=== PATIENT | female | born 1965 | race Caucasian/White ===

== ENCOUNTER 2022-05-11 06:04 | Inpatient (IN) ==
[2022-05-11] MEDS ORDERED: CeFAZolin Syr 2,000MG/20 ML 2,000 MG/20 ML SYRINGE IVPB ONE (06:28)
[2022-05-11] MEDS ORDERED: Ringers Solution, Lactated 1,000 ML IVC SCH (06:30)
[2022-05-11] MEDS ORDERED: Lidocaine -MPF 2% 5 ML VIAL ONE (06:58)
[2022-05-11] MEDS ORDERED: Ondansetron 4 MG/2 ML VIAL ONE (06:58)
[2022-05-11] MEDS ORDERED: *HR* Rocuronium Bromide 50 MG/5 ML VIAL ONE ×2 (06:58→08:18)
[2022-05-11] MEDS ORDERED: *HR* Succinylcholine 200 MG/10 ML VIAL IVP ONE (06:58)
[2022-05-11] MEDS ORDERED: *HR* FentaNYL (PF) 100 MCG/2 ML VIAL ONE ×2 (06:59→08:12)
[2022-05-11] MEDS ORDERED: *HR* Propofol 200 MG/20 ML VIAL IVP ONE (06:59)
[2022-05-11] MEDS ORDERED: Promethazine 6.25 MG in Water for inj. (sterile) 20 ML IVPB PRN (07:08)
[2022-05-11] MEDS ORDERED: Ondansetron 4 MG/2 ML VIAL IVP PRN ×2 (07:08→11:13)
[2022-05-11] MEDS ORDERED: *HR* HYDROmorphone PF 0.5 MG/0.5 ML SYRINGE IVP PRN (07:08)
[2022-05-11] MEDS ORDERED: *HR* OxyCODONE Immed Rel 5 MG TABLET PO PRN (07:08)
[2022-05-11] MEDS ORDERED: Lidocaine HCL 4 ML Topical Solution (Laryng-O-Jet Kit Sterile Pak) TP ONE (07:31)
[2022-05-11] MEDS ORDERED: Sugammadex Sodium 200 MG/2 ML VIAL IV ONE (08:33)
[2022-05-11] MEDS ORDERED: Ketamine HCL *QUVA* 50mg (1mL) SYRINGE ONE (08:56)
[2022-05-11] MEDS ORDERED: Ketorolac 30 MG/ML VIAL ONE (09:32)
[2022-05-11] MEDS ORDERED: Naloxone 0.4 MG/ML INJ IVP PRN (11:13)
[2022-05-11] MEDS: Gabapentin 300 MG CAPSULE PO SCH ×2 (14:34→22:33)
[2022-05-11] MEDS: *HR* HYDROcodone/Acet 5/325 mg TABLET PO PRN ×2 (14:34→22:33)
[2022-05-11] MEDS: *HR* Heparin 5,000 UNIT/ML VIAL SQ SCH ×2 (14:35→22:32)
[2022-05-11] MEDS ORDERED: Gabapentin 300 MG CAPSULE PO SCH (15:00)
[2022-05-11] MEDS: Ipratropium/Albuterol Neb 3 ML IH SCH ×4 (15:38→23:39)
[2022-05-11] MEDS: 0.9 % Sodium Chloride 1,000 ML IVC SCH (19:41)
[2022-05-11] MEDS: Ketorolac 30 MG/ML VIAL IVP SCH (19:42)
[2022-05-11] MEDS: Famotidine 20 MG TABLET PO SCH (22:33)
[2022-05-11] MEDS: Sennosides/Docusate Sodium TABLET PO SCH (22:34)
[2022-05-12] MEDS: Ketorolac 30 MG/ML VIAL IVP SCH ×4 (00:50→17:38)
[2022-05-12 03:52] LABS: Hematocrit 33.7 % (35.3-44.9); Hemoglobin 10.5 g/dL (11.5-15.4); Mean Corpuscular HGB Conc 31.2 g/dL (31.6-35.5); Mean Corpuscular Hemoglobin 29.5 pg (28.0-33.3); Mean Corpuscular Volume 94.7 fL (83.0-100.0); Mean Platelet Volume 10.3 fL (9.4-12.4); Platelet Count 217 K/mcL (140-400); Red Blood Count 3.56 M/mcL (3.82-4.97); Red Cell Distribution Width 13.7 % (11.5-14.5); White Blood Count 8.6 K/mcL (4.3-11.1)
[2022-05-12 04:08] LABS: % Iron Saturation 8 % (15-50); BUN/Creatinine Ratio 20 (6-26); Blood Urea Nitrogen 11 mg/dL (6-20); Calcium 8.6 mg/dL (8.6-10.3); Carbon Dioxide 24 mEq/L (23-29); Chloride 111 mEq/L (98-107); Glucose 112 mg/dL (70-105); Iron 22 mcg/dL (50-170); Magnesium 1.9 mg/dL (1.6-2.6); Osmolality,Calculated 288 (280-300); Potassium 4.3 mEq/L (3.5-5.1); Sodium 139 mEq/L (136-145); Transferrin 194 mg/dL (203-362)
[2022-05-12] MEDS: Ipratropium/Albuterol Neb 3 ML IH SCH ×5 (04:17→20:12)
[2022-05-12] MEDS: *HR* Heparin 5,000 UNIT/ML VIAL SQ SCH ×3 (05:17→20:33)
[2022-05-12] MEDS: Gabapentin 300 MG CAPSULE PO SCH ×3 (08:11→20:34)
[2022-05-12] MEDS: Famotidine 20 MG TABLET PO SCH ×2 (08:11→20:34)
[2022-05-12] MEDS: Sennosides/Docusate Sodium TABLET PO SCH ×2 (08:11→20:34)
[2022-05-12] MEDS: 0.9 % Sodium Chloride 1,000 ML IVC SCH (08:19)
[2022-05-12] MEDS: Budesonide/Formoterol 160/4.5 1 PUFF INH IH SCH ×2 (11:15→20:12)
[2022-05-12] MEDS: *HR* HYDROcodone/Acet 5/325 mg TABLET PO PRN (20:34)
[2022-05-13] MEDS: Ipratropium/Albuterol Neb 3 ML IH SCH ×7 (00:19→23:30)
[2022-05-13] MEDS: Ketorolac 30 MG/ML VIAL IVP SCH ×5 (01:18→23:37)
[2022-05-13] MEDS: *HR* HYDROcodone/Acet 5/325 mg TABLET PO PRN ×2 (04:29→11:54)
[2022-05-13] MEDS: *HR* Heparin 5,000 UNIT/ML VIAL SQ SCH ×3 (04:30→20:29)
[2022-05-13] MEDS: Budesonide/Formoterol 160/4.5 1 PUFF INH IH SCH ×2 (08:16→20:12)
[2022-05-13] MEDS: Famotidine 20 MG TABLET PO SCH ×2 (08:24→20:29)
[2022-05-13] MEDS: Gabapentin 300 MG CAPSULE PO SCH ×3 (08:24→20:29)
[2022-05-13] MEDS: Sennosides/Docusate Sodium TABLET PO SCH ×2 (08:24→20:29)
[2022-05-14] MEDS: Ipratropium/Albuterol Neb 3 ML IH SCH ×6 (04:08→23:12)
[2022-05-14] MEDS: Ketorolac 30 MG/ML VIAL IVP SCH ×3 (06:23→18:20)
[2022-05-14] MEDS: *HR* Heparin 5,000 UNIT/ML VIAL SQ SCH ×3 (06:24→21:53)
[2022-05-14] MEDS: Budesonide/Formoterol 160/4.5 1 PUFF INH IH SCH ×2 (07:20→19:53)
[2022-05-14] MEDS: Famotidine 20 MG TABLET PO SCH ×2 (08:18→21:52)
[2022-05-14] MEDS: Gabapentin 300 MG CAPSULE PO SCH ×3 (08:18→21:52)
[2022-05-14] MEDS: Sennosides/Docusate Sodium TABLET PO SCH (08:18)
[2022-05-14 09:38] LABS: BUN/Creatinine Ratio 16 (6-26); Blood Urea Nitrogen 10 mg/dL (6-20); Calcium 9.6 mg/dL (8.6-10.3); Carbon Dioxide 28 mEq/L (23-29); Chloride 105 mEq/L (98-107); Glucose 138 mg/dL (70-105); Osmolality,Calculated 287 (280-300); Potassium 4.2 mEq/L (3.5-5.1); Sodium 138 mEq/L (136-145)
[2022-05-14] MEDS: *HR* HYDROcodone/Acet 5/325 mg TABLET PO PRN (21:52)
[2022-05-15] MEDS: Sennosides/Docusate Sodium TABLET PO SCH ×2 (00:15→08:18)
[2022-05-15] MEDS: Ketorolac 30 MG/ML VIAL IVP SCH ×3 (00:52→11:54)
[2022-05-15] MEDS: Ipratropium/Albuterol Neb 3 ML IH SCH ×3 (03:54→11:33)
[2022-05-15] MEDS: *HR* Heparin 5,000 UNIT/ML VIAL SQ SCH ×2 (07:13→13:14)
[2022-05-15] MEDS: Gabapentin 300 MG CAPSULE PO SCH (08:18)
[2022-05-15] MEDS: Famotidine 20 MG TABLET PO SCH (08:18)
[2022-05-15 11:24] VITALS: BP 135/70; PULSE 84; TEMP 98.1
[2022-05-15] MEDS: Budesonide/Formoterol 160/4.5 1 PUFF INH IH SCH (11:33)
[2022-05-15 12:47] VITALS: O2SAT 91
[2022-05-15] MEDS: *HR* HYDROcodone/Acet 5/325 mg TABLET PO PRN (13:08)
== END 2022-05-15 14:01 | disposition home or self-care (01) | DRG 164 ==
LOC: SAMDAY 06:04 → 2NNU 07:35
PROVIDERS: ADMIT Thoracic Surgery (Cardiothoracic Vascular Surgery); ATTEND Thoracic Surgery (Cardiothoracic Vascular Surgery)